=== PATIENT | female | born 1980 | race Caucasian/White ===

== ENCOUNTER 2017-01-28 20:02 | Emergency (ER) | payer OTHER ==
[~2017-01-28 20:02] MED LIST: AMLODIPINE BESYL5 M1 PO; AMLODIPINE5 M1 PO; APTIOM800 MG PO; ECO81 PO; GLU500 PO; GOOD SENSE ASPI81 M3 PO; HYDROCHLOROTHIA25 MG PO; KEP500 PO; KEPPRA500 MG PO; LAMOTRIGINE25 MG; METOPROLOL TART25 M1 PO; NOR5 PO; NORCO1 TA1 PO; ZES10 PO
[2017-01-28 20:40] LABS: BASOPHIL % 0.4 % (0-2); PLATELET COUNT 229 x10^3mcL (130-400); RED CELL DISTRIBUTION WIDTH 13.4 % (11.5-14.5)
[2017-01-28 20:48] LABS: CALCIUM 8.9 mg/dL (8.5-10.1); CARBON DIOXIDE 25.2 mmol/L (21-32); CHLORIDE SERUM 104 mmol/L (98-107); CREATININE SERUM 0.7 mg/dL (0.6-1.0); GFR1 > 60 mL/min; GLUCOSE SERUM 138 mg/dL (74-106); POTASSIUM SERUM 3.6 mmol/L (3.5-5.1); SODIUM SERUM 139 mmol/L (136-145)
[2017-01-28 20:52] LABS: ALBUMIN 3.5 g/dL (3.4-5.0); ALKALINE PHOSPHATASE 103 U/L (46-116); ALT/SGPT 26 U/L (14-59); AMYLASE 37 U/L (25-115); AST/SGOT 15 U/L (15-37); LIPASE 154 IU/L (73-393); TOTAL PROTEIN, SERUM 7.6 g/dL (6.4-8.2)
[2017-01-28 22:34] VITALS: BP 130/71
== END 2017-01-28 22:34 | disposition home or self-care (01) ==
LOC: ED 20:02
PROVIDERS: Emergency Medicine
DX: R10.32 Left lower quadrant pain (principal); R19.7 Diarrhea, unspecified; I10 Essential (primary) hypertension; Z85.3 Personal history of malignant neoplasm of breast; Z79.899 Other long term (current) drug therapy
CPT/HCPCS: J2270; J2405; J7030; Q0092

== ENCOUNTER 2017-02-21 17:02 | Emergency (ER) | payer OTHER ==
[2017-02-21 19:18] LABS: BASOPHIL % 0.4 % (0-2); PLATELET COUNT 280 x10^3mcL (130-400); RED CELL DISTRIBUTION WIDTH 13.3 % (11.5-14.5)
[2017-02-21 19:54] LABS: CHLORIDE SERUM 103 mmol/L (98-107); POTASSIUM SERUM 3.6 mmol/L (3.5-5.1); SODIUM SERUM 140 mmol/L (136-145)
[2017-02-21 19:55] LABS: LIPASE 159 IU/L (73-393)
[2017-02-21 19:56] LABS: ALKALINE PHOSPHATASE 107 U/L (46-116); AST/SGOT 18 U/L (15-37); BILIRUBIN TOTAL 0.27 mg/dL (0.20-1.00)
[2017-02-21 20:12] LABS: ALBUMIN 3.3 g/dL (3.4-5.0); CREATININE SERUM 0.8 mg/dL (0.6-1.0); GFR1 > 60 mL/min; GLUCOSE SERUM 116 mg/dL (74-106); TOTAL PROTEIN, SERUM 7.5 g/dL (6.4-8.2)
[2017-02-21 20:13] LABS: ALT/SGPT 29 U/L (14-59); CALCIUM 9.1 mg/dL (8.5-10.1)
[2017-02-21 20:48] VITALS: BP 130/70
== END 2017-02-21 20:48 | disposition home or self-care (01) ==
LOC: ED 17:02
PROVIDERS: Emergency Medicine
DX: R10.32 Left lower quadrant pain (principal); R19.7 Diarrhea, unspecified; I10 Essential (primary) hypertension; Z90.49 Acquired absence of other specified parts of digestive tract
CPT/HCPCS: J3010; J7030

== ENCOUNTER 2017-02-25 08:57 | Inpatient (IN) | payer OTHER ==
[~2017-02-25] VITALS: Ht 167.6 cm; Wt 124.5 kg
[2017-02-25 09:55] LABS: BASOPHIL % 0.5 % (0-2); PLATELET COUNT 265 x10^3mcL (130-400); RED CELL DISTRIBUTION WIDTH 13.3 % (11.5-14.5)
[2017-02-25 10:01] LABS: UA SPECIFIC GRAVITY 1.025 (1.005-1.035); microscopic required? YES; urine erythrocyte 1+ (NEGATIVE)
[2017-02-25 11:11] LABS: CALCIUM 9.3 mg/dL (8.5-10.1); CHLORIDE SERUM 101 mmol/L (98-107); CREATININE SERUM 0.8 mg/dL (0.6-1.0); GFR1 > 60 mL/min; GLUCOSE SERUM 145 mg/dL (74-106); POTASSIUM SERUM 3.9 mmol/L (3.5-5.1); SODIUM SERUM 140 mmol/L (136-145)
[2017-02-25 11:15] LABS: ALBUMIN 3.6 g/dL (3.4-5.0); ALKALINE PHOSPHATASE 118 U/L (46-116); ALT/SGPT 36 U/L (14-59); AMYLASE 34 U/L (25-115); AST/SGOT 30 U/L (15-37); BILIRUBIN TOTAL 0.4 mg/dL (0.20-1.00); LIPASE 177 IU/L (73-393); TOTAL PROTEIN, SERUM 7.4 g/dL (6.4-8.2)
[2017-02-25] MEDS ORDERED: CIPRO500 MG PO (12:54)
[2017-02-25] MEDS ORDERED: HYDROCHLOROTHIA25 MG PO (12:55)
[2017-02-25] MEDS ORDERED: FLA500 PO (12:55)
[2017-02-25] MEDS ORDERED: BEN20 PO (12:55)
[2017-02-25] MEDS ORDERED: KEPPRA500 MG PO (12:56)
[2017-02-25] MEDS ORDERED: APTIOM800 MG PO (12:56)
[2017-02-25] MEDS ORDERED: ASPIR 8181 MG PO (12:56)
[2017-02-25] MEDS ORDERED: NOR5 PO (12:56)
[2017-02-25 13:58] VITALS: BP 148/78
[2017-02-25 14:32] LABS: CHOLESTEROL/HDL RATIO 3.6; MAGNESIUM 1.9 mg/dL (1.8-2.4); PHOSPHOROUS 3.5 mg/dL (2.5-4.9)
[2017-02-25 14:35] LABS: T3 TOTAL 1.25 ng/mL
[2017-02-25 14:48] LABS: AMPHETAMINE QUAL UR NONE DETECTED (NEG <=1000)
[2017-02-25 15:45] LABS: FREE T4 1.18 ng/dL (0.76-1.46); FREE THYROXINE INDEX 3.4 ug/dL (1.4-4.5); T4(THYROXINE) 10.6 ug/dL (4.7-13.3)
[2017-02-25 22:47] VITALS: BP 114/62
[2017-02-26 05:23] VITALS: BP 120/69
[2017-02-26 06:35] LABS: BASOPHIL % 0.6 % (0-2); PLATELET COUNT 209 x10^3mcL (130-400); RED CELL DISTRIBUTION WIDTH 13.7 % (11.5-14.5)
[2017-02-26 06:48] LABS: CALCIUM 8.2 mg/dL (8.5-10.1); CARBON DIOXIDE 24.2 mmol/L (21-32); CHLORIDE SERUM 103 mmol/L (98-107); CREATININE SERUM 0.7 mg/dL (0.6-1.0); GFR1 > 60 mL/min; GLUCOSE SERUM 120 mg/dL (74-106); MAGNESIUM 1.9 mg/dL (1.8-2.4); POTASSIUM SERUM 3.5 mmol/L (3.5-5.1); SODIUM SERUM 137 mmol/L (136-145)
[2017-02-26 08:56] VITALS: Ht 167.6 cm; Wt 124.5 kg
[2017-02-26 09:30] VITALS: BP 128/80
[2017-02-26 12:28] VITALS: BP 104/60
[2017-02-26 17:48] VITALS: BP 137/72
[2017-02-26 21:35] VITALS: BP 124/70
[2017-02-27 06:10] VITALS: BP 135/69
[2017-02-27 06:21] LABS: CALCIUM 8.6 mg/dL (8.5-10.1); CARBON DIOXIDE 24.4 mmol/L (21-32); CHLORIDE SERUM 101 mmol/L (98-107); CREATININE SERUM 0.7 mg/dL (0.6-1.0); GFR1 > 60 mL/min; GLUCOSE SERUM 110 mg/dL (74-106); MAGNESIUM 1.9 mg/dL (1.8-2.4); POTASSIUM SERUM 3.5 mmol/L (3.5-5.1); SODIUM SERUM 137 mmol/L (136-145)
[2017-02-27 07:46] LABS: BASOPHIL % 0.5 % (0-2); PLATELET COUNT 199 x10^3mcL (130-400); RED CELL DISTRIBUTION WIDTH 13.4 % (11.5-14.5)
[2017-02-27 10:07] VITALS: BP 114/76
[2017-02-27 17:47] VITALS: BP 146/84
[2017-02-27] MEDS ORDERED: CIPRO500 MG PO (18:31)
[2017-02-27] MEDS ORDERED: FLA500 PO (18:32)
[2017-02-27] MEDS ORDERED: BICARSIM80 M1 PO (18:33)
[2017-02-27] MEDS ORDERED: BD LACTINEX1.4 MG PO (18:34)
[2017-02-27] MEDS ORDERED: NORCO1 TA2 PO (18:35)
[2017-02-27] MEDS ORDERED: METP PO (18:45)
[2017-02-27 18:58] VITALS: BP 146/84
== END 2017-02-27 20:03 | disposition home or self-care (01) | DRG 244 ==
LOC: ED 08:57 → DU 12:45 → MU 02-27 08:22
PROVIDERS: Emergency Medicine; Family Medicine; ADMIT Family Medicine
DX: K57.33 Diverticulitis of large intestine without perforation or abscess with bleeding (principal); N17.0 Acute kidney failure with tubular necrosis; I10 Essential (primary) hypertension; G40.909 Epilepsy, unspecified, not intractable, without status epilepticus; E66.01 Morbid (severe) obesity due to excess calories; R73.03 Prediabetes; K76.0 Fatty (change of) liver, not elsewhere classified; R06.89 Other abnormalities of breathing; Z68.41 Body mass index [BMI] 40.0-44.9, adult; Z85.3 Personal history of malignant neoplasm of breast; Z90.10 Acquired absence of unspecified breast and nipple; Z56.0 Unemployment, unspecified
CPT/HCPCS: 82962; 83880; 84439; G0480; J0500; J0696; J2270; J2405; J3490; J7030; Q9967

== ENCOUNTER 2017-06-05 18:22 | Inpatient (IN) | payer OTHER ==
[~2017-06-05] VITALS: Ht 167.6 cm; Wt 124.4 kg
[~2017-06-05 18:22] MED LIST changes: +ASPIR 8181 MG PO; +BD LACTINEX1.4 MG PO; +BEN20 PO; +BICARSIM80 M1 PO; +CIPRO500 MG PO; +FLA500 PO; +METP PO; +NORCO1 TA2 PO
[2017-06-05 19:25] LABS: BASOPHIL % 0.4 % (0-2); PLATELET COUNT 315 x10^3mcL (130-400); RED CELL DISTRIBUTION WIDTH 14.1 % (11.5-14.5)
[2017-06-05 19:38] LABS: UA SPECIFIC GRAVITY 1.015 (1.005-1.035); microscopic required? YES; urine erythrocyte TRACE (NEGATIVE)
[2017-06-05 19:49] LABS: CALCIUM 9.4 mg/dL (8.5-10.1); CARBON DIOXIDE 28.5 mmol/L (21-32); CHLORIDE SERUM 102 mmol/L (98-107); CREATININE SERUM 0.8 mg/dL (0.6-1.0); GFR1 > 60 mL/min; GLUCOSE SERUM 140 mg/dL (74-106); POTASSIUM SERUM 3.5 mmol/L (3.5-5.1); SODIUM SERUM 139 mmol/L (136-145)
[2017-06-05 19:57] LABS: AMPHETAMINE QUAL UR NONE DETECTED (NEG <=1000)
[2017-06-05 19:59] LABS: T3 TOTAL 1.11 ng/mL
[2017-06-05 20:03] LABS: ALBUMIN 3.5 g/dL (3.4-5.0); ALKALINE PHOSPHATASE 127 U/L (46-116); ALT/SGPT 28 U/L (14-59); AST/SGOT 18 U/L (15-37); BILIRUBIN TOTAL 0.3 mg/dL (0.20-1.00); C REACTIVE PROTEIN 3.3 mg/dL (<=0.9)
[2017-06-05 20:07] LABS: TOTAL PROTEIN, SERUM 8.3 g/dL (6.4-8.2)
[2017-06-05] MEDS ORDERED: LISINOPRIL2.5 MG PO (20:07)
[2017-06-05 20:18] LABS: CHOLESTEROL/HDL RATIO 3.6; CK-MB < 0.5 ng/mL (0-3.6); CREATINE KINASE 57 U/L (26-192); PHOSPHOROUS 3.8 mg/dL (2.5-4.9)
[2017-06-05 20:26] LABS: ERYTHROCYTE SED RATE 42 mm/hr (0-20)
[2017-06-05 20:46] VITALS: BP 145/84
[2017-06-05 20:53] LABS: FREE T4 0.99 ng/dL (0.76-1.46); FREE THYROXINE INDEX 3.2 ug/dL (1.4-4.5); T4(THYROXINE) 10.7 ug/dL (4.7-13.3)
[2017-06-06 05:52] LABS: BASOPHIL % 0.4 % (0-2); PLATELET COUNT 267 x10^3mcL (130-400); RED CELL DISTRIBUTION WIDTH 13.8 % (11.5-14.5)
[2017-06-06 06:16] LABS: CALCIUM 8.4 mg/dL (8.5-10.1); CARBON DIOXIDE 26.9 mmol/L (21-32); CHLORIDE SERUM 104 mmol/L (98-107); CREATININE SERUM 0.7 mg/dL (0.6-1.0); GFR1 > 60 mL/min; GLUCOSE SERUM 130 mg/dL (74-106); MAGNESIUM 1.9 mg/dL (1.8-2.4); PHOSPHOROUS 3.9 mg/dL (2.5-4.9); POTASSIUM SERUM 3.9 mmol/L (3.5-5.1); SODIUM SERUM 138 mmol/L (136-145)
[2017-06-06 06:39] VITALS: BP 115/69
[2017-06-06 18:04] VITALS: BP 106/53
[2017-06-06 21:36] VITALS: BP 105/52
[2017-06-07 05:14] VITALS: BP 107/52
[2017-06-07 06:00] LABS: BASOPHIL % 0.4 % (0-2); PLATELET COUNT 289 x10^3mcL (130-400); RED CELL DISTRIBUTION WIDTH 14.1 % (11.5-14.5)
[2017-06-07 06:21] LABS: CALCIUM 8.9 mg/dL (8.5-10.1); CARBON DIOXIDE 28.8 mmol/L (21-32); CHLORIDE SERUM 104 mmol/L (98-107); CREATININE SERUM 0.7 mg/dL (0.6-1.0); GFR1 > 60 mL/min; GLUCOSE SERUM 121 mg/dL (74-106); POTASSIUM SERUM 3.8 mmol/L (3.5-5.1); SODIUM SERUM 139 mmol/L (136-145)
[2017-06-07 08:49] VITALS: BP 112/55
[2017-06-07 09:56] VITALS: BP 112/55
[2017-06-07] MEDS ORDERED: KEFLEX500 M1 PO (12:27)
[2017-06-07] MEDS ORDERED: MOT600 PO (12:33)
[2017-06-07] MEDS ORDERED: NORCO1 TA2 PO (12:34)
[2017-06-07] MEDS ORDERED: GLU500 PO (12:36)
[2017-06-07 12:44] VITALS: BP 110/64
[2017-06-07] MEDS ORDERED: LIPI10 PO (13:05)
== END 2017-06-07 15:45 | disposition home or self-care (01) | DRG 263 ==
LOC: ED 18:22 → MU 19:06 → DU 19:06 → MU 06-06 08:52
PROVIDERS: Specialist; Surgery; ADMIT Family Medicine
PROC: 0FT44ZZ Resection of Gallbladder, Percutaneous Endoscopic Approach (ICD-10-PCS; 2017-06-06)
PROC: BF131ZZ Fluoroscopy of Gallbladder and Bile Ducts using Low Osmolar Contrast (ICD-10-PCS; 2017-06-06)
PROC: 0X950ZZ Drainage of Left Axilla, Open Approach (ICD-10-PCS; principal; 2017-06-06 10:00)
DX: K80.20 Calculus of gallbladder without cholecystitis without obstruction (principal); Z68.41 Body mass index [BMI] 40.0-44.9, adult; E11.65 Type 2 diabetes mellitus with hyperglycemia; K57.92 Diverticulitis of intestine, part unspecified, without perforation or abscess without bleeding; E66.01 Morbid (severe) obesity due to excess calories; I10 Essential (primary) hypertension; L02.412 Cutaneous abscess of left axilla; G40.909 Epilepsy, unspecified, not intractable, without status epilepticus; Z85.3 Personal history of malignant neoplasm of breast; Z92.21 Personal history of antineoplastic chemotherapy; Z79.899 Other long term (current) drug therapy; Z90.710 Acquired absence of both cervix and uterus; Z90.12 Acquired absence of left breast and nipple; R73.03 Prediabetes; Z80.52 Family history of malignant neoplasm of bladder; Z80.42 Family history of malignant neoplasm of prostate; Z82.49 Family history of ischemic heart disease and other diseases of the circulatory system; F17.210 Nicotine dependence, cigarettes, uncomplicated
CPT/HCPCS: 36600; 82962; 83880; 84439; 90715; 94150; J0690; J1170; J2001; J2250; J2270; J2405; J2543; J3490; J7030; Q0092

== ENCOUNTER 2017-07-10 18:43 | Emergency (ER) | payer OTHER ==
[~2017-07-10 18:43] MED LIST changes: +KEFLEX500 M1 PO; +LIPI10 PO; +LISINOPRIL2.5 MG PO; +MOT600 PO
[2017-07-10 23:40] VITALS: BP 147/69
== END 2017-07-10 23:40 | disposition home or self-care (01) ==
LOC: ED 18:43
DX: R09.1 Pleurisy (principal); R05 Cough; I49.9 Cardiac arrhythmia, unspecified; I10 Essential (primary) hypertension; Z90.710 Acquired absence of both cervix and uterus; Z90.12 Acquired absence of left breast and nipple

== ENCOUNTER 2018-02-23 17:34 | Inpatient (IN) | payer OTHER ==
[~2018-02-23] VITALS: Ht 167.6 cm; Wt 126.1 kg
[2018-02-23 18:36] LABS: BASOPHIL % 0.4 % (0-2); PLATELET COUNT 280 x10^3mcL (130-400); RED CELL DISTRIBUTION WIDTH 13.6 % (11.5-14.5)
[2018-02-23 18:43] LABS: CALCIUM 8.7 mg/dL (8.5-10.1); CARBON DIOXIDE 29.8 mmol/L (21-32); CHLORIDE SERUM 103 mmol/L (98-107); CREATININE SERUM 0.7 mg/dL (0.6-1.0); GFR1 > 60 mL/min; GLUCOSE SERUM 116 mg/dL (74-106); POTASSIUM SERUM 4.1 mmol/L (3.5-5.1); SODIUM SERUM 134 mmol/L (136-145)
[2018-02-23 18:48] LABS: ALKALINE PHOSPHATASE 107 U/L (46-116); ALT/SGPT 30 U/L (14-59); AST/SGOT 19 U/L (15-37); BILIRUBIN TOTAL 0.37 mg/dL (0.20-1.00); LIPASE 119 IU/L (73-393); TOTAL PROTEIN, SERUM 7.4 g/dL (6.4-8.2)
[2018-02-23 18:49] LABS: ALBUMIN 3.3 g/dL (3.4-5.0)
[2018-02-23] MEDS ORDERED: ASPIR 8181 MG PO (19:24)
[2018-02-23] MEDS ORDERED: KEPPRA1000 M1 PO (19:26)
[2018-02-23 20:12] VITALS: BP 140/75
[2018-02-23 20:54] LABS: MAGNESIUM 1.8 mg/dL (1.8-2.4); PHOSPHOROUS 3.2 mg/dL (2.5-4.9)
[2018-02-23 21:02] LABS: T3 TOTAL 1.61 ng/mL
[2018-02-23 21:06] LABS: FREE T4 1.02 ng/dL (0.76-1.46); FREE THYROXINE INDEX 2.9 ug/dL (1.4-4.5); T4(THYROXINE) 9.2 ug/dL (4.7-13.3)
[2018-02-24 02:04] LABS: BASOPHIL % 0.4 % (0-2); PLATELET COUNT 290 x10^3mcL (130-400); RED CELL DISTRIBUTION WIDTH 12.5 % (11.5-14.5)
[2018-02-24 02:17] LABS: CALCIUM 8.2 mg/dL (8.5-10.1); CARBON DIOXIDE 27.4 mmol/L (21-32); CHLORIDE SERUM 105 mmol/L (98-107); CHOLESTEROL 144 mg/dL (<200); CHOLESTEROL/HDL RATIO 3.4; CREATININE SERUM 0.6 mg/dL (0.6-1.0); GFR1 > 60 mL/min; GLUCOSE SERUM 124 mg/dL (74-106); HDL CHOLESTEROL 42 mg/dL (40-60); POTASSIUM SERUM 3.6 mmol/L (3.5-5.1); SODIUM SERUM 138 mmol/L (136-145); TRIGLYCERIDES 169 mg/dL (<150)
[2018-02-24 05:46] VITALS: BP 100/54
[2018-02-24 08:16] LABS: microscopic required? NO
[2018-02-24 09:00] VITALS: BP 137/80
[2018-02-24 09:32] LABS: UA SPECIFIC GRAVITY 1.025 (1.005-1.035); urine erythrocyte NEGATIVE (NEGATIVE)
[2018-02-24 09:45] LABS: AMPHETAMINE QUAL UR NONE DETECTED
[2018-02-24 12:50] VITALS: BP 124/75
[2018-02-24 16:18] VITALS: BP 100/71
[2018-02-24 18:53] VITALS: BP 100/71
== END 2018-02-24 19:45 | disposition home or self-care (01) | DRG 243 ==
LOC: ED 17:34 → DU 19:28
PROVIDERS: Emergency Medicine; Student in an Organized Health Care Education/Training Program
DX: K21.9 Gastro-esophageal reflux disease without esophagitis (principal); E11.65 Type 2 diabetes mellitus with hyperglycemia; I10 Essential (primary) hypertension; G40.909 Epilepsy, unspecified, not intractable, without status epilepticus; E44.1 Mild protein-calorie malnutrition; K57.30 Diverticulosis of large intestine without perforation or abscess without bleeding; E66.01 Morbid (severe) obesity due to excess calories; Z90.49 Acquired absence of other specified parts of digestive tract; Z90.710 Acquired absence of both cervix and uterus; Z80.42 Family history of malignant neoplasm of prostate; Z80.52 Family history of malignant neoplasm of bladder; Z84.89 Family history of other specified conditions; Z82.49 Family history of ischemic heart disease and other diseases of the circulatory system; Z68.41 Body mass index [BMI] 40.0-44.9, adult
CPT/HCPCS: 82962; 83880; 84439; J7030; Q0092

== ENCOUNTER 2018-03-16 16:20 | Emergency (ER) | payer OTHER ==
[~2018-03-16] VITALS: Ht 167.6 cm; Wt 125.2 kg
[~2018-03-16 16:20] MED LIST changes: +KEPPRA1000 M1 PO
[2018-03-16 16:25] VITALS: Ht 167.6 cm; Wt 125.2 kg
[2018-03-16 17:42] LABS: BASOPHIL % 0.7 % (0-2); PLATELET COUNT 298 x10^3mcL (130-400); RED CELL DISTRIBUTION WIDTH 13.6 % (11.5-14.5)
[2018-03-16 17:46] LABS: CALCIUM 8.9 mg/dL (8.5-10.1); CARBON DIOXIDE 26.6 mmol/L (21-32); CHLORIDE SERUM 106 mmol/L (98-107); CREATININE SERUM 0.8 mg/dL (0.6-1.0); GFR1 > 60 mL/min; GLUCOSE SERUM 117 mg/dL (74-106); POTASSIUM SERUM 3.5 mmol/L (3.5-5.1); SODIUM SERUM 142 mmol/L (136-145)
[2018-03-16 17:50] LABS: ALKALINE PHOSPHATASE 99 U/L (46-116); ALT/SGPT 19 U/L (14-59); AMYLASE 29 U/L (25-115); AST/SGOT 15 U/L (15-37); BILIRUBIN TOTAL 0.33 mg/dL (0.20-1.00); LIPASE 163 IU/L (73-393); TOTAL PROTEIN, SERUM 7.2 g/dL (6.4-8.2)
[2018-03-16 17:51] LABS: ALBUMIN 3.3 g/dL (3.4-5.0)
[2018-03-16 19:29] VITALS: BP 124/73
== END 2018-03-16 19:30 | disposition home or self-care (01) ==
LOC: ED 16:20
PROVIDERS: Emergency Medicine
DX: A08.4 Viral intestinal infection, unspecified (principal); I10 Essential (primary) hypertension; Z85.3 Personal history of malignant neoplasm of breast
CPT/HCPCS: 83880; J1885; J2405; J2765; J7030

== ENCOUNTER 2018-03-18 11:51 | Emergency (ER) | payer OTHER ==
[~2018-03-18] VITALS: Ht 167.6 cm; Wt 124.3 kg
[2018-03-18 11:53] VITALS: Ht 167.6 cm; Wt 124.3 kg
[2018-03-18 12:17] LABS: BASOPHIL % 0.8 % (0-2); PLATELET COUNT 317 x10^3mcL (130-400); RED CELL DISTRIBUTION WIDTH 13.2 % (11.5-14.5)
[2018-03-18 12:30] LABS: CALCIUM 9.1 mg/dL (8.5-10.1); CARBON DIOXIDE 26.7 mmol/L (21-32); CHLORIDE SERUM 104 mmol/L (98-107); CREATININE SERUM 0.8 mg/dL (0.6-1.0); GFR1 > 60 mL/min; GLUCOSE SERUM 114 mg/dL (74-106); POTASSIUM SERUM 3.7 mmol/L (3.5-5.1); SODIUM SERUM 141 mmol/L (136-145)
[2018-03-18 12:34] LABS: ALBUMIN 3.4 g/dL (3.4-5.0); ALKALINE PHOSPHATASE 106 U/L (46-116); ALT/SGPT 17 U/L (14-59); AMYLASE 31 U/L (25-115); AST/SGOT 14 U/L (15-37); BILIRUBIN TOTAL 0.24 mg/dL (0.20-1.00); LIPASE 164 IU/L (73-393); TOTAL PROTEIN, SERUM 7.5 g/dL (6.4-8.2)
[2018-03-18 13:05] LABS: microscopic required? YES; urine erythrocyte TRACE (NEGATIVE)
[2018-03-18 15:30] VITALS: BP 134/77
== END 2018-03-18 15:30 | disposition home or self-care (01) ==
LOC: ED 11:51
PROVIDERS: Specialist
DX: K57.92 Diverticulitis of intestine, part unspecified, without perforation or abscess without bleeding (principal); I10 Essential (primary) hypertension
CPT/HCPCS: 83880; J1885; J2405; J3010; J3490

== ENCOUNTER 2018-10-21 15:13 | Inpatient (IN) | payer SELFPAY ==
[~2018-10-21] VITALS: Ht 167.6 cm; Wt 122.6 kg
[2018-10-21 17:29] LABS: BASOPHIL % 0.2 % (0-2); PLATELET COUNT 287 x10^3mcL (130-400); RED CELL DISTRIBUTION WIDTH 13.7 % (11.5-14.5)
[2018-10-21 17:38] LABS: CALCIUM 9.1 mg/dL (8.5-10.1); CARBON DIOXIDE 28.4 mmol/L (21-32); CHLORIDE SERUM 102 mmol/L (98-107); CREATININE SERUM 0.7 mg/dL (0.6-1.0); GFR1 > 60 mL/min; GLUCOSE SERUM 137 mg/dL (74-106); POTASSIUM SERUM 4.1 mmol/L (3.5-5.1); SODIUM SERUM 138 mmol/L (136-145)
[2018-10-21 17:42] LABS: ALBUMIN 3.5 g/dL (3.4-5.0); ALKALINE PHOSPHATASE 118 U/L (46-116); ALT/SGPT 26 U/L (14-59); AST/SGOT 22 U/L (15-37); BILIRUBIN TOTAL 0.5 mg/dL (0.20-1.00); LIPASE 111 IU/L (73-393)
[2018-10-21] MEDS ORDERED: KEPPRA500 MG PO (18:34)
[2018-10-21 18:50] LABS: microscopic required? YES; urine erythrocyte TRACE (NEGATIVE)
[2018-10-21 19:04] LABS: AMPHETAMINE QUAL UR NONE DETECTED (See below)
[2018-10-21 19:12] LABS: T3 TOTAL 1.43 ng/mL
[2018-10-21 19:19] LABS: FREE T4 1.08 ng/dL (0.76-1.46); FREE THYROXINE INDEX 3.2 ug/dL (1.4-4.5); T4(THYROXINE) 9.8 ug/dL (4.7-13.3)
[2018-10-21 19:47] LABS: CHOLESTEROL/HDL RATIO 3.1; MAGNESIUM 2.1 mg/dL (1.8-2.4); PHOSPHOROUS 3.2 mg/dL (2.5-4.9)
[2018-10-21 20:04] VITALS: BP 132/71
[2018-10-21 20:10] VITALS: Ht 167.6 cm; Wt 122.6 kg
[2018-10-21 21:20] VITALS: BP 105/59
[2018-10-21 22:57] VITALS: BP 138/75
[2018-10-22 05:52] VITALS: BP 110/61
[2018-10-22 06:16] LABS: BASOPHIL % 0.1 % (0-2); PLATELET COUNT 254 x10^3mcL (130-400)
[2018-10-22 06:38] LABS: CARBON DIOXIDE 28.3 mmol/L (21-32); CHLORIDE SERUM 105 mmol/L (98-107); CREATININE SERUM 0.8 mg/dL (0.6-1.0); GFR1 > 60 mL/min; GLUCOSE SERUM 136 mg/dL (74-106); MAGNESIUM 2.1 mg/dL (1.8-2.4); PHOSPHOROUS 3.2 mg/dL (2.5-4.9); POTASSIUM SERUM 3.6 mmol/L (3.5-5.1); SODIUM SERUM 138 mmol/L (136-145)
[2018-10-22 10:24] VITALS: BP 101/45
[2018-10-22 17:43] VITALS: BP 120/53
[2018-10-22 21:20] VITALS: BP 117/50
[2018-10-23 05:48] VITALS: BP 120/71
[2018-10-23 06:00] LABS: BASOPHIL % 0.3 % (0-2); PLATELET COUNT 255 x10^3mcL (130-400)
[2018-10-23 06:37] LABS: CALCIUM 8.6 mg/dL (8.5-10.1); CARBON DIOXIDE 25.8 mmol/L (21-32); CHLORIDE SERUM 104 mmol/L (98-107); CREATININE SERUM 0.6 mg/dL (0.6-1.0); GFR1 > 60 mL/min; GLUCOSE SERUM 107 mg/dL (74-106); MAGNESIUM 2.1 mg/dL (1.8-2.4); PHOSPHOROUS 2.4 mg/dL (2.5-4.9); POTASSIUM SERUM 3.9 mmol/L (3.5-5.1); SODIUM SERUM 138 mmol/L (136-145)
[2018-10-23 09:33] VITALS: BP 118/67
[2018-10-23 17:36] VITALS: BP 112/61
[2018-10-23 21:24] VITALS: BP 116/63
[2018-10-24 05:04] VITALS: BP 125/78
[2018-10-24 07:25] LABS: BASOPHIL % 0.2 % (0-2); PLATELET COUNT 298 x10^3mcL (130-400); RED CELL DISTRIBUTION WIDTH 13.6 % (11.5-14.5)
[2018-10-24 07:49] LABS: CALCIUM 8.8 mg/dL (8.5-10.1); CARBON DIOXIDE 26.4 mmol/L (21-32); CHLORIDE SERUM 102 mmol/L (98-107); CREATININE SERUM 0.7 mg/dL (0.6-1.0); GFR1 > 60 mL/min; GLUCOSE SERUM 110 mg/dL (74-106); PHOSPHOROUS 3.5 mg/dL (2.5-4.9); POTASSIUM SERUM 3.5 mmol/L (3.5-5.1); SODIUM SERUM 139 mmol/L (136-145)
[2018-10-24 09:23] VITALS: BP 125/78
[2018-10-24 10:05] VITALS: BP 128/77
[2018-10-24] MEDS ORDERED: LEVAQUIN750 MG PO (11:28)
[2018-10-24] MEDS ORDERED: FLA500 PO (11:28)
[2018-10-24] MEDS ORDERED: BD LACTINEX1.4 MG PO (11:45)
== END 2018-10-24 13:07 | disposition home or self-care (01) | DRG 872 ==
LOC: ED 15:13 → MU 18:16
PROVIDERS: Emergency Medicine; ADMIT Internal Medicine
DX: A41.9 Sepsis, unspecified organism (principal); Z68.41 Body mass index [BMI] 40.0-44.9, adult; K57.20 Diverticulitis of large intestine with perforation and abscess without bleeding; I10 Essential (primary) hypertension; E66.9 Obesity, unspecified; E11.65 Type 2 diabetes mellitus with hyperglycemia; G40.909 Epilepsy, unspecified, not intractable, without status epilepticus; Z90.710 Acquired absence of both cervix and uterus; Z90.12 Acquired absence of left breast and nipple; Z85.3 Personal history of malignant neoplasm of breast; Z90.49 Acquired absence of other specified parts of digestive tract; Z79.899 Other long term (current) drug therapy; Z80.52 Family history of malignant neoplasm of bladder; Z80.42 Family history of malignant neoplasm of prostate; Z82.49 Family history of ischemic heart disease and other diseases of the circulatory system
CPT/HCPCS: 82962; 83880; 84439; C9113; J2270; J2405; J2543; J7030; Q0092

== ENCOUNTER 2018-10-26 01:02 | Inpatient (IN) | payer SELFPAY ==
[~2018-10-26] VITALS: Ht 167.6 cm; Wt 120.2 kg
[~2018-10-26 01:02] MED LIST changes: +LEVAQUIN750 MG PO
[2018-10-26 01:39] VITALS: Ht 167.6 cm; Wt 120.2 kg
[2018-10-26 03:36] LABS: PLATELET COUNT 396 x10^3mcL (130-400); RED CELL DISTRIBUTION WIDTH 13.6 % (11.5-14.5)
[2018-10-26 03:38] LABS: UA SPECIFIC GRAVITY >=1.030 (1.005-1.035); microscopic required? YES; urine erythrocyte 1+ (NEGATIVE)
[2018-10-26 04:01] LABS: BAND NEUTROPHIL 5 % (0-10); MONOCYTE 3 % (0-7); SEGMENTED NEUTROPHILS 84 % (37-75)
[2018-10-26 04:03] LABS: PLATELET MORPHOLOGY PLATELETS NORMAL; rbc morphology (normal/abnorm) NORMAL (NORMAL)
[2018-10-26 04:18] LABS: CALCIUM 9.7 mg/dL (8.5-10.1); CARBON DIOXIDE 28.5 mmol/L (21-32); CHLORIDE SERUM 101 mmol/L (98-107); CREATININE SERUM 0.8 mg/dL (0.6-1.0); GFR1 > 60 mL/min; GLUCOSE SERUM 149 mg/dL (74-106); POTASSIUM SERUM 3.7 mmol/L (3.5-5.1); SODIUM SERUM 139 mmol/L (136-145)
[2018-10-26 04:23] LABS: ALKALINE PHOSPHATASE 159 U/L (46-116); ALT/SGPT 31 U/L (14-59); AST/SGOT 13 U/L (15-37); BILIRUBIN TOTAL 0.39 mg/dL (0.20-1.00); LIPASE 114 IU/L (73-393)
[2018-10-26 04:30] LABS: ALBUMIN 3.2 g/dL (3.4-5.0); TOTAL PROTEIN, SERUM 8.8 g/dL (6.4-8.2)
[2018-10-26 06:25] LABS: CHOLESTEROL/HDL RATIO 3.7; MAGNESIUM 1.7 mg/dL (1.8-2.4); PHOSPHOROUS 3.9 mg/dL (2.5-4.9)
[2018-10-26 07:01] VITALS: BP 155/82
[2018-10-26 09:32] VITALS: BP 138/75
[2018-10-26 09:53] VITALS: BP 153/85
[2018-10-26 12:35] VITALS: BP 136/80
[2018-10-26 17:00] VITALS: BP 149/79
[2018-10-26 21:23] VITALS: BP 157/81
[2018-10-27 02:22] LABS: AMPHETAMINE QUAL UR NONE DETECTED (See below)
[2018-10-27 04:44] VITALS: BP 128/71
[2018-10-27 07:09] LABS: BASOPHIL % 0.3 % (0-2); PLATELET COUNT 341 x10^3mcL (130-400); RED CELL DISTRIBUTION WIDTH 13.9 % (11.5-14.5)
[2018-10-27 07:36] LABS: CALCIUM 9.5 mg/dL (8.5-10.1); CARBON DIOXIDE 26.8 mmol/L (21-32); CHLORIDE SERUM 102 mmol/L (98-107); CREATININE SERUM 0.7 mg/dL (0.6-1.0); GFR1 > 60 mL/min; GLUCOSE SERUM 132 mg/dL (74-106); PHOSPHOROUS 3.3 mg/dL (2.5-4.9); POTASSIUM SERUM 3.3 mmol/L (3.5-5.1); SODIUM SERUM 138 mmol/L (136-145)
[2018-10-27 08:50] VITALS: BP 137/75
[2018-10-27 16:45] VITALS: BP 125/65
[2018-10-27 21:37] VITALS: BP 126/71
[2018-10-28 05:47] VITALS: BP 114/66
[2018-10-28 06:45] LABS: BASOPHIL % 0.2 % (0-2); CALCIUM 8.6 mg/dL (8.5-10.1); CARBON DIOXIDE 29.5 mmol/L (21-32); CHLORIDE SERUM 101 mmol/L (98-107); CREATININE SERUM 0.7 mg/dL (0.6-1.0); GFR1 > 60 mL/min; GLUCOSE SERUM 127 mg/dL (74-106); PHOSPHOROUS 3.4 mg/dL (2.5-4.9); PLATELET COUNT 345 x10^3mcL (130-400); POTASSIUM SERUM 3.1 mmol/L (3.5-5.1); RED CELL DISTRIBUTION WIDTH 13.4 % (11.5-14.5); SODIUM SERUM 138 mmol/L (136-145)
[2018-10-28 09:40] VITALS: BP 131/70
[2018-10-28] MEDS ORDERED: ZES5 PO (11:31)
[2018-10-28] MEDS ORDERED: ECO81 PO (11:31)
[2018-10-28] MEDS ORDERED: NOR5 PO ×2 (11:31→11:35)
[2018-10-28] MEDS ORDERED: KEP500 PO (11:32)
[2018-10-28] MEDS ORDERED: KEPPRA500 MG PO (11:35)
[2018-10-28] MEDS ORDERED: ASPIR 8181 MG PO (11:35)
[2018-10-28] MEDS ORDERED: HYDROCHLOROTHIA25 MG PO (11:35)
[2018-10-28] MEDS ORDERED: BD LACTINEX1.4 MG PO (11:35)
[2018-10-28] MEDS ORDERED: LISINOPRIL2.5 MG PO (11:35)
[2018-10-28] MEDS ORDERED: FLA500 PO (11:35)
[2018-10-28 12:30] VITALS: BP 101/61
== END 2018-10-28 13:26 | disposition home or self-care (01) | DRG 872 ==
LOC: ED 01:02 → MU 05:34
PROVIDERS: Emergency Medicine; ADMIT Internal Medicine
DX: A41.9 Sepsis, unspecified organism (principal); K57.20 Diverticulitis of large intestine with perforation and abscess without bleeding; Z68.41 Body mass index [BMI] 40.0-44.9, adult; I10 Essential (primary) hypertension; G40.909 Epilepsy, unspecified, not intractable, without status epilepticus; E83.42 Hypomagnesemia; E66.9 Obesity, unspecified; E11.65 Type 2 diabetes mellitus with hyperglycemia; E87.6 Hypokalemia; Z90.710 Acquired absence of both cervix and uterus; Z85.3 Personal history of malignant neoplasm of breast; Z90.12 Acquired absence of left breast and nipple; Z90.49 Acquired absence of other specified parts of digestive tract; Z82.49 Family history of ischemic heart disease and other diseases of the circulatory system; Z80.42 Family history of malignant neoplasm of prostate; Z80.52 Family history of malignant neoplasm of bladder; Z83.49 Family history of other endocrine, nutritional and metabolic diseases
CPT/HCPCS: 82962; 83880; J2270; J2405; J2543; J3490; J7030; J7042; Q0092; Q9967

== ENCOUNTER 2019-06-18 13:01 | Emergency (ER) | payer MEDICAID ==
[~2019-06-18] VITALS: Ht 172.7 cm; Wt 122.0 kg
[~2019-06-18 13:01] MED LIST changes: +ZES5 PO
[2019-06-18 13:58] VITALS: Ht 172.7 cm; Wt 122.0 kg
[2019-06-18 16:42] VITALS: BP 149/86
== END 2019-06-18 16:42 | disposition home or self-care (01) ==
LOC: ED 13:01
DX: R10.31 Right lower quadrant pain (principal); R11.10 Vomiting, unspecified; R63.0 Anorexia; I10 Essential (primary) hypertension; Z90.710 Acquired absence of both cervix and uterus; Z90.12 Acquired absence of left breast and nipple; Z90.49 Acquired absence of other specified parts of digestive tract; Z98.890 Other specified postprocedural states

== ENCOUNTER 2019-12-03 13:21 | Emergency (ER) | payer MEDICAID ==
[~2019-12-03] VITALS: Ht 170.2 cm; Wt 119.7 kg
[2019-12-03 13:33] VITALS: BP 147/78; Ht 170.2 cm; Wt 119.7 kg
[2019-12-03 14:58] LABS: BASOPHIL % 0.3 % (0-2); PLATELET COUNT 288 x10^3mcL (130-400); RED CELL DISTRIBUTION WIDTH 13.6 % (11.5-14.5)
[2019-12-03 15:26] LABS: ALBUMIN 3.5 g/dL (3.4-5.0); ALKALINE PHOSPHATASE 96 U/L (46-116); ALT/SGPT 26 U/L (14-59); AST/SGOT 14 U/L (15-37); BILIRUBIN TOTAL 0.9 mg/dL (0.20-1.00); CARBON DIOXIDE 29.1 mmol/L (21-32); CHLORIDE SERUM 100 mmol/L (98-107); CREATININE SERUM 0.7 mg/dL (0.6-1.0); GFR1 > 60 mL/min; GLUCOSE SERUM 111 mg/dL (74-106); LIPASE 82 IU/L (73-393); POTASSIUM SERUM 3.7 mmol/L (3.5-5.1); SODIUM SERUM 136 mmol/L (136-145); TOTAL PROTEIN, SERUM 7.8 g/dL (6.4-8.2)
[2019-12-03 15:31] LABS: CALCIUM 8.7 mg/dL (8.5-10.1)
== END 2019-12-03 16:15 | disposition home or self-care (01) ==
LOC: ED 13:21
PROVIDERS: Emergency Medicine
DX: K57.92 Diverticulitis of intestine, part unspecified, without perforation or abscess without bleeding (principal); D72.829 Elevated white blood cell count, unspecified; I10 Essential (primary) hypertension; Z90.49 Acquired absence of other specified parts of digestive tract; Z90.710 Acquired absence of both cervix and uterus; Z98.890 Other specified postprocedural states; Z85.3 Personal history of malignant neoplasm of breast
CPT/HCPCS: 36415